=== PATIENT | female | born 1950 | race Caucasian/White ===

== ENCOUNTER 2022-09-03 18:24 | Emergency (ER) | payer MEDICARE, BC, SELFPAY ==
[2022-09-03 20:16] VITALS: BP 154/85; PULSE 69; RESP 18; TEMP 36.6; O2SAT 99; BMI 28.3
--- NOTE | 2022-09-03 20:41 | ED_ITS ---
HPI - General Adult General Chief complaint: Unspecified Complaint, Adult Stated complaint: Feels really out of it Time Seen by Provider: 09/03/22 20:30 History of Present Illness HPI narrative: This 72-year-old female comes in with her and states that she feels out of it. She does not have any clarification to this. She denies having any pain. There is no report of fever, dysuria, nausea, vomiting, or weakness. She states that she went to her exercise class today and that went well. Related Data Home Medications Medication Instructions Recorded Confirmed omeprazole 20 mg capsule,delayed 20 mg PO DAILY 09/03/22 09/03/22 release sertraline 50 mg tablet 50 mg PO DAILY 09/03/22 09/03/22 Allergies Allergy/AdvReac Type Severity Reaction Status Date / Time No Known Drug Allergies Allergy Verified 09/03/22 20:18 Review of Systems Status of ROS: Reports: 10 or more systems reviewed and unremarkable except as noted in History and below Narrative: Constitutional: No fevers, no weight gain or loss. Eyes: No discharge. No vision changes. HENT: No congestion, no sore throat, no ear pain. Cardiovascular: No chest pain, no palpitations. Respiratory: No shortness of breath, no wheezes, no cough. Gastrointestinal: No abdominal pain, no vomiting, no diarrhea. Genitourinary: No dysuria, no hematuria. Musculoskeletal: Normal range of motion. Skin: No rashes, no pruritis. Neurological: No dizziness, weakness, sensory change, speech change. Endo/Heme/Allergies: No bruising or bleeding. No polydipsia. Pysch: no suicidality, no anxiety, no insomnia. All other systems reviewed and are negative. Exam Narrative: Exam Narrative: Constitutional: Well-developed, well-nourished, no acute distress. HEENT: Normocephalic, atraumatic. Neck: Normal range of motion. Nontender. Supple. Heart: Regular. No murmurs. Normal rate. Intact distal pulses. Lungs: Clear to auscultation. No chest discomfort. No wheezes, rhonchi, or rales. Abdomen: Normal bowel sounds. Nontender. No rebound tenderness. Genitalia: Deferred. Back: No midline tenderness. Normal range of motion. Extremities: Normal range of motion. No injury. Skin: Intact. No rash. Warm. No erythema or pallor. Neurologic: No altered sensation. No weakness. Alert and oriented. Psychiatric: No suicidality. No anxiety or depression. No insomnia. Nursing notes and vitals signs are reviewed. Const: Vital Signs, click to edit/add: Vital Signs - 24 hr 09/03/22 20:16 Temperature 97.9 F Pulse Rate [Right Pulse Oximeter] 69 Respiratory Rate 18 Blood Pressure [Ri ght Upper Arm] 154/85 H Pulse Oximetry 99 Oxygen Delivery Me thod Room Air Course Vital Signs Vital signs: Initial Vital Signs Temperature 97.9 F 09/03/22 20:16 Temperature Source Temporal Artery Scan 09/03/22 20:16 Pulse Rate 69 09/03/22 20:16 Respiratory Rate 18 09/03/22 20:16 Blood Pressure 154/85 H 09/03/22 20:16 Blood Pressure Mean 108 09/03/22 20:16 Blood Pressure Position Sitting 09/03/22 20:16 Pulse Oximetry 99 09/03/22 20:16 Oxygen Delivery Method 09/03/22 20:16 Vital Signs Temperature 97.9 F 09/03/22 20:16 Pulse Rate 69 09/03/22 20:16 Respiratory Rate 18 09/03/22 20:16 Blood Pressure 154/85 H 09/03/22 20:16 Pulse Oximetry 99 09/03/22 20:16 Oxygen Delivery Method 09/03/22 20:16 Temperature 97.9 F 09/03/22 20:16 Pulse Rate 69 09/03/22 20:16 Respiratory Rate 18 09/03/22 20:16 Blood Pressure 154/85 H 09/03/22 20:16 Pulse Oximetry 99 09/03/22 20:16 Oxygen Delivery Method 09/03/22 20:16 Medical Decision Making MDM Narrative Medical decision making narrative: This patient comes in stating that she feels out of it. She really does not describe any specific symptoms to clarify what this means for her. She has normal vital signs. Lab results return also with normal metabolic panel and complete blood count. Her urinalysis also returns with normal findings. These results are communicated with the patient. She is okay to return home. I describe signs and symptoms that would indicate a need for return and re- evaluation. Lab Data Labs: Lab Results 10/17/22 10/17/22 10/17/22 Range/Units 20:40 20:53 20:53 WBC 5.59 (4.50-11.00) K/uL RBC 4.32 (4.00-5.20) m/uL Hgb 13.0 (12.0-16.0) gm/dL Hct 39.9 (33.0-51.0) % MCV 92 (80-100) fL MCH 30 (26-34) pg MCHC 33 (32-36) gm/dL RDW Coeff of Jane 9.1 L (11.5-15.5) % Plt Count 229 (140-440) K/uL Neut % (Auto) 54.7 (42.0-72.0) % Lymph % (Auto) 31.7 (20-44) % [place] % (Auto) 11.1 H (0.0-11.0) % Eos % (Auto) 1.4 (0.0-7.0) % Baso % (Auto) 0.7 (0.0-3.0) % Neut # (Auto) 3.10 (1.7-7.0) K/uL Lymph # (Auto) 1.80 (0.90-2.90) K/uL [place] # (Auto) 0.60 (0.00-0.90) K/UL Eos # (Auto) 0.10 (0.00-0.50) K/uL Baso # (Auto) 0.00 (0.00-0.30) K/uL Sodium 136 (135-149) mmol/L Potassium 3.8 (3.6-5.1) mmol/L Chloride 100 (96-114) mmol/L Carbon Dioxide 29 (20-32) mmol/L BUN 17 (7-30) mg/dL Creatinine 1.0 (0.5-1.5) mg/dL Estimated Creat Clear 45.20 Estimated GFR 61 ml/min Glucose 97 (60-115) mg/dL Calcium 9.6 (8.4-10.6) mg/dL C-Reactive Protein 0.6 (0.5-1.0) mg/dL Urine Color Yellow (Yellow) Urine Appearance Clear (Clear) Urine pH 7.0 (5.0-8.5) Ur Specific [place] 1.010 (1.000-1.030) Urine Protein Negative (Negative) Urine Glucose (UA) Negative (Negative) Urine Ketones Negative (Negative) Urine Blood Negative (Negative) Urine Nitrite Negative (Negative) Urine Bilirubin Negative (Negative) Urine Urobilinogen 0.2 (0.2-1.0) Ur Leukocyte Esterase Negative (Negative) Urine RBC 0-2 (0-2) Urine WBC 0-2 (0-5) Ur Squamous Epith Cells None (None-Few) Urine Bacteria None (None) Discharge Plan Discharge Clinical Impression: Malaise Patient Disposition: Home, Self-Care Condition: Stable Additional Instructions: Use [id number] medicines as needed and directed. Follow up with MD or return if worsening. Prescriptions: No Action sertraline 50 mg tablet 50 mg PO DAILY omeprazole 20 mg capsule,delayed release(DR/EC) 20 mg PO DAILY Follow Up/Referrals: Patria Keenan MD [Primary Care Provider] - Stand Alone Forms: [employer] Info Instructions
--- OUTSIDE RECORDS SUMMARY | 2022-09-03 20:55 | XMS_ITS | Clinical Summary ---
:1950 Author Organization [facility] [place] [address] Care Team Providers Name Role Phone Patria Keenan MD Primary Care Provider Allergies Active Allergy Reactions Severity Noted Date Comments Penicillins Hives High 04/30/2019 Medications Medication Sig Dispensed Refills Start Date End Date Status multivitamin (MVI) Take 1 Tablet by 0 Active tablet mouth once daily. calcium with vitamin Take 1 Tablet by 0 Active D3 (OS-VIKRAM 500 + D) mouth once tablet daily. LUTEIN ORAL Take 1 Tablet by 0 A ctive mouth once daily. omeprazole Take 1 Capsule 90 Capsule 3 05/17/2021 Ac tive (PRILOSEC) 20 mg (20 mg) by mouth Delayed-Release once daily capsuleIndications: before a meal. Heart burn sertraline (ZOLOFT) Take 1 Tablet 93 Tablet 3 05/24/2022 Active 100 mg (100 mg) by tabletIndications: mouth once Depression, daily. unspecified depression type omeprazole Take 1 Capsule 90 Capsule 3 05/24/2022 Ac tive (PRILOSEC) 10 mg (10 mg) by mouth capsuleIndications: once daily Heart burn before a meal. CPAPIndications: LIT CPAP machine for 1 Each 11 08/27/2022 Active (obstructive sleep home use at apnea) pressure 5-10 cmw, full face mask x1/3month with a full face cushion x1/mo CPAPIndications: LIT CPAP machine for 1 Each 2 06/22/2022 1 (obstructive sleep home use at apnea) pressure 5-20cmw, full face mask x1/3month with a full face cushion x1/mo Active Problems Problem Noted Date Seasonal affective disorder 08/22/2021 LIT 07/25/2004 AHI-24.5 05/20/2021 Heart burn 05/20/2021 Colon polyp 05/17/2021 Overview: 2019 colonoscopy - fu in 5 years Age-related osteoporosis without current pathological fracture 05/17/2021 Overview: DEXA 04/2020 [place] T score L spine -2. 7 2017 DEXA BABAR Roger 2 years Took some thing prior to that Depression 05/17/2021 Overview: Started in perimenopausal Encounters Date Type Specialty Care Team Description 08/27/2022 Office Visit Dimitri Iqbal MD Sleep Follow -up (CPAP) 08/27/2022 Travel 08/26/2022 Orders Only Scanner <No scans attac hed> 07/16/2022 Telemedicine Freedom Rebolledo MD Playdate App (No vitals taken. CC: rash ) 07/16/2022 Telephone Patria Keenan MD Appoint ment Request (Any Provider) 07/16/2022 Travel 07/16/2022 Nurse Triage Patria Keenan MD Derm Pr oblem from Last 3 Months Immunizations Name Administration Dates Next Due COVID-19 vaccine (Moderna 100mcg/0.5mL) 09/25/2021, 02/14/20 21, 01/16/2021 MD ANNAV Hepatitis A (Adult) 01/26/2016, 07/09/2012 Hepatitis A, Unspecified 01/26/2016, 07/09/2012 Hepatitis B (Adult) 02/21/2017, 07/09/2012 Hepatitis B, Unspecified 02/21/2017, 07/09/2012 Influenza, High-dose Inactivated 09/04/2019 Influenza, High-dose Quadrivalent 10/21/2020 Inactivated Influenza, Inactivated AIIV4 (Age 65+ 11/22/2021 Years) Preserv Free Pneumococcal Poly,23-Valent (Pneumovax) 04/18/2018 Pneumococcal conj 13-Valent (Prevnar 13) 04/30/2019 Td (Age >=7 Years) 09/10/2003 Tdap 01/01/2022, 11/08/2011, 09/10/2003 Typhoid (injectable) 07/09/2012 Yellow Fever 07/09/2012 Zoster (Shingrix-RZV, recombinant) 07/31/2018, 04/18/2018 Zoster (Zostavax-ZVL, live) 11/26/2013 Family History Medical History Relation Name Comments Cancer-colon Brother Depression Father Depression Mother Cancer-breast No Family History Cancer-ovarian No Family History Relation Name Status Comments Brother (Age 55) Father Mother (Age 88) Social History Tobacco Use Types Packs/Day Years Used Date Former Smoker Smokeless Tobacco: Never Used Tobacco Cessation: Counseling Given: Yes Comments: quit in 1979 Alcohol Use Standard Drinks/Week Comments Yes 1 (1 standard drink = 0.6 oz pure alcoho l) per day Alcohol Habits Answer Date Recorded How often do you have a drink containing alcohol? Not asked How many drinks containing alcohol do you have on a typical Not asked day when you are drinking? How often do you have six or more drinks on one occasion? No t asked Comment: per day 05/17/2021 Sex Assigned at Date Recorded Not on file COVID-19 Exposure Response Date Recorded In the last 10 days, have you been in contact with No / Unsu re 08/27/2022 1:17 PM CDT someone who was confirmed or suspected to have Coronavirus/COVID-19? Obstetrics History Last Filed Vital Signs Vital Sign Reading Time Taken Comments Blood Pressure 115/70 08/27/2022 1:27 PM CDT Pulse 71 08/27/2022 1:27 PM CDT Temperature - - Respiratory Rate - - Oxygen Saturation 96% 08/27/2022 1:27 PM CDT Inhaled Oxygen Concentration - - Weight 78.2 kg (172 lb 4.8 oz) 08/27/2022 1:27 PM CDT Height 163.3 cm (5' 4.29) 05/24/2022 9:39 AM CDT Body Mass Index 29.31 05/24/2022 9:39 AM CDT Plan of Treatment Upcoming Encounters Date Type Specialty Care Team Description 10/08/2022 Office Visit Yeimy Casey MBBS [address] [facility] [address] [facility] [address] [place] [address] (Wo rk) Health Maintenance Due Date Last Done Comments Hepatitis C screening for 02/01/1968 age 18-79 COVID-19 vaccine series (5 05/02/2022 03/07/2022, , - Booster for Moderna 02/13/2021, Additional series) history exists Influenza for age 65+ 07/19/2022 11/22/2021, 10/21/2020, 09/04/2019 BMI (ht and wt on same 05/24/2023 05/24/2022, 01/01/2022, day) for age 18+ 10/16/2021, Additional history exists Depression screening for 05/24/2023 05/24/2022, 05/17/2021 age 12+ Medicare Wellness for age 0705/24/2023 05/24/2022, 05/17/2021 65+ Mammogram for age 45-75 05/29/2023 05/29/2022, 05/16/2020 (Verified in Care Everywhere or Patient Record), 01/31/2016 Colonoscopy through age 75 06/01/2024 06/01/2019 (Verified in Care Everywhere or Patient Record) Lipids for age 45-75 05/24/2027 05/24/2022 Tetanus booster 01/01/2032 01/01/2022, 11/08/2011, 09/10/2003, Additional history exists Zoster (shingles) series Completed 07/31/2018, 04/18/2018, for age 50+ 11/26/2013 Pneumococcal series for Completed 04/30/2019, 04/18/2018 age 65+ DEXA/DXA scan for age 65+ Addressed 02/08/2020 (Verified i n Overridden with the Care Everywhere or intention of not Patient Record) completing the t opic Tdap Completed 01/01/2022, 11/08/2011, 09/10/2003 Procedures Procedure Name Priority Date/Time Associated Diagnosis Comme nts SCAN-DIAGNOSTIC 08/26/2022 12:00 AM Resul ts for this REPORT CDT procedure are i n the results section. from Last 3 Months Results SCAN-DIAGNOSTIC REPORT (08/26/2022 12:00 AM CDT) Narrative This result has an attachment that is no t available. Scanner OTHER from Last 3 Months Insurance Payer Benefit Plan / Subscriber ID Effective Dates Phone Addre ss Type Group MEDICARE - PB MEDICARE [place] [id number] 2018-Present ATT N: CLAIMS USE ONLY ONLY [address] [place] [address] [employer] [id number] 2016-[place] [address] [phone] [place] [address] Care Teams [employer] Relationship Specialty Start Date End Date Patria Keenan MD PCP - General Family Practice 08/22/21 [address] [place] [address]
[2022-09-03 21:07] LABS: Hematocrit 39.9 % (33.0-51.0); Mean Corpuscular HGB Conc 33 gm/dL (32-36); Mean Corpuscular Hemoglobin 30 pg (26-34); Mean Corpuscular Volume 92 fL (80-100); Neutrophils Percent Auto 54.7 % (42.0-72.0); Platelet Count* 229 K/uL (140-440); RDW Coefficient of Variation % 9.1 % (11.5-15.5); Red Blood Count 4.32 m/uL (4.00-5.20); White Blood Count* 5.59 K/uL (4.50-11.00)
[2022-09-03 21:08] LABS: Basophils Percent Auto 0.7 % (0.0-3.0); Eosinophils Percent Auto 1.4 % (0.0-7.0); Lymphocytes Percent Auto 31.7 % (20-44); Monocytes Percent Auto 11.1 % (0.0-11.0); Slide Review Reflex No
[2022-09-03 21:12] LABS: Chloride* 100 mmol/L (96-114); Sodium* 136 mmol/L (135-149)
[2022-09-03 21:13] LABS: Potassium* 3.8 mmol/L (3.6-5.1)
[2022-09-03 21:15] LABS: Estimated Glomerular Filt Rate 61 ml/min
[2022-09-03 21:16] LABS: Blood Urea Nitrogen* 17 mg/dL (7-30); Calcium* 9.6 mg/dL (8.4-10.6); Carbon Dioxide* 29 mmol/L (20-32); Glucose* 97 mg/dL (60-115)
[2022-09-03 21:19] LABS: C Reactive Protein* 0.6 mg/dL (0.5-1.0)
[2022-09-03 21:27] LABS: Appearance Urine Clear (Clear); Color Urine Yellow (Yellow)
[2022-09-03 21:28] LABS: Bilirubin Urine Negative (Negative); Blood Urine Negative (Negative); Glucose Urine Negative (Negative); Ketones Urine Negative (Negative); Leukocyte Esterase Urine Negative (Negative); Nitrite Urine Negative (Negative); Protein Urine Negative (Negative); RBC Urine 0-2 (0-2); Urobilinogen Urine 0.2 (0.2-1.0); WBC Urine 0-2 (0-5)
[2022-09-03 22:00] VITALS: BP 144/80; PULSE 71; RESP 18; TEMP 36.7; O2SAT 99
[2022-09-03 22:45] VITALS: BP 144/80; PULSE 71; RESP 18; TEMP 36.7
== END 2022-09-03 22:30 | disposition home or self-care (01) ==
PROVIDERS: Emergency Provider Emergency Medicine Emergency Medical Services; PCP Family Medicine
DX: R53.81 Other malaise (principal)
CPT/HCPCS: 36415; 80048; 81001; 85025; 86140; 99283; 99284

== ENCOUNTER 2023-11-13 20:08 | Outpatient (CLI) | payer MEDICARE, BC, SELFPAY | END 2023-11-13 20:09 | disposition home or self-care (01) | LOC: SLEEP 20:09 | PROVIDERS: PCP Family Medicine; Visit Provider Internal Medicine | DX: G47.33 Obstructive sleep apnea (adult) (pediatric) (principal) | CPT/HCPCS: 95811 ==

== ENCOUNTER 2024-09-25 07:10 | Outpatient (CLI) | payer MEDICARE, BC, SELFPAY ==
--- OUTSIDE RECORDS SUMMARY | 2024-09-25 07:15 | XMS_ITS | Clinical Summary ---
Author Organization [facility] Address [place], [place] [address] Care Team Providers Care Relay Technician Name Role Phone Lizbet Beasley Primary Care Provider [phone] Yeimy Casey [facility] Unavailable [phone] Allergies Active Allergy Reactions Criticality Noted Date Comments Penicillins Hives High 04/30/2019 Medications Medication Sig Dispensed Refills Start Date End Date Status LUTEIN ORAL Take 1 Tablet by mouth once daily. Active calcium with vitamin D3 (OS-VIKRAM 500 + D) tablet 780 mg daily and 450 IU daily 0 10/08/2022 Active multivitamin (MVI) tablet Vitamin D 1000 IU and calcium 450 MG daily 0 10/08/2022 Active famotidine (PEPCID) 20 mg tablet Take 1 Tablet (20 mg) by mouth two times daily. 0 08/29/2023 Active CPAPIndications:O SA (obstructive sleep apnea) CPAP machine for home use at pressure 12 cmw, full face mask x1/3month with a full face cushion x1/mo 1 Each 11 11/28/2023 Active sertraline (ZOLOFT) 100 mg tabletIndications :Depression, unspecified depression type Take 1 Tablet (100 mg) by mouth once daily. 93 Tablet 3 06/05/2024 Active polyethylene glycol-electrolyt e (GOLYTELY) 236-22.74-6.74 -5.86 gram suspensionIndicat ions:Polyp of colon, unspecified part of colon, unspecified type Drink 2 liters (half the bottle) the day before colonoscopy and 2 liters (remaining prep) 6 hours prior to colonoscopy appointment. 4000 mL 07/10/2024 Active mirtazapine (REMERON) 7.5 mg tabletIndications :Depression, unspecified depression type Take 1 Tablet (7.5 mg) by mouth at bedtime. 90 Tablet 3 08/31/2024 Active mirtazapine (REMERON) 7.5 mg tabletIndications :Depression, unspecified depression type Take 1 Tablet (7.5 mg) by mouth at bedtime. 30 Tablet 08/18/2024 Discontinue d(Reorder (E-cancel not sent)) Active Problems Problem Noted Date Diagnosed Date VERO (generalized anxiety disorder) 09/17/2024 Seasonal affective disorder 08/22/2021 LIT 07/25/2004 AHI-24.5 05/20/2021 Heart burn 05/20/2021 Colon polyp 05/17/2021 Overview (05/17/2021): 2019 colonoscopy - fu in 5 years Age-related osteoporosis wit hout current pathological fracture 05/17/2021 Overview (05/24/2022): DEXA 04/2020 [place] T score L spine -2.7 2018 DEXA BABAR Roger 2 years Took some thing prior to that Depression 05/17/2021 Overview (05/17/2021): Started in perimenopausal Encounters Date Type Department Care Team Description 09/24/2024 Travel 09/16/2024 10:15 AM CDT Tele[facility]icine [facility] [address] [place] [address] Gia Chavira PsyD, LP Telehealth; Depression; Anxiety; Mental Health Intake 09/16/2024 Travel 08/31/2024 10:35 AM CDT Office Visit [facility] [[email or web address] [address] [place] [address] Lizbet Beasley, DO Preoperative Exam (09/25/24 - Colonoscopy- Dr. Manning - [facility]) 08/31/2024 Travel 08/18/2024 10:35 AM CDT Office Visit [address] [place] [address] Lizbet Beasley, Multiple Problems (General malaise, hand tremors/shaking/ner vousness, decreased appetite, weight loss, feels hot/cold on/off) 08/18/2024 Travel 07/15/2024 7:00 AM CDT Orders Only [address] [address] [place], [place] [facility] 07/14/2024 10:40 AM CDT Ancillary Procedure [facility] [[email or web address]] [facility] [place] [address] 07/14/2024 Travel 07/13/2024 Telephone [facility] [[email or web address]] [facility] [place] [address] Suzette Salmeron [facility] Phone number 07/10/2024 10:10 AM CDT Office Visit [address] [place] [address] Lizbet Beasley DO Medicare ANNUAL (subsequent) Visit (74 year old female); Dizziness (On/off over the last few weeks - had work up 2 weeks ago) 07/10/[address] [place] [address] Bernardino Manning MD Screening 07/10/2024 Travel 07/02/2024 10:00 AM CDT Office Visit [address] [address] Suzette Salmeron [facility] Visit 07/02/2024 Travel 06/30/2024 Orders Only [address] [address] Jessie Zuleta PA 1 scan: (1-Ord) NFLD-EKG-06/29/24 06/29/2024 7:45 AM CDT Office Visit [address] [address] Jessie Zuleta PA Dizziness (Has happened on and off but lately it has happen more frequently, interfering with everyday life and loss of appetite. ) 06/29/2024 Travel from Last 3 Months Immunizations Name Administration Dates Next Due AMB INFLUENZA IIV3 (AGE 65+ YRS) PF (Flu Clinic Only) 08/07/2024 COVID-19 vaccine (Moderna 10 0mcg/0.5mL) PF, MDV 09/25/2021,02/13/2021,01/16/2021 Hepatitis A (Adult) 01/26/2016,07/09/2012 Hepatitis A, Unspecified 01/26/2016,07/09/2012 Hepatitis B (Adult) 02/21/2017,07/09/2012 Hepatitis B, Unspecified 02/21/2017,07/09/2012 Influenza, High-dose Inactivated 08/07/2024,08/18 Influenza, High-dose Quadriv alent Inactivated 10/21/2020 Influenza, Inactivated AIIV4 (Age 65+ Years) Preserv Free 10/07/2023,08/30/2022,11/22/2021 Pneumococcal Poly,23-Valent (Pneumovax) 04/18/20 18 Pneumococcal conj 13-Valent (Prevnar 13) 019 RSV, Bivalent Vaccine Recons tituted (Abrysvo 120MCG/0.5mL) 11/01/2023 Td (Age >=7 Years) 09/10/2003 Tdap 01/01/2022,11/08/2011,09/10/2003 Typhoid (injectable) 07/09/2012 Yellow Fever 07/09/2012 Zoster (Shingrix-RZV, recombinant) 07/31/2018, Zoster (Zostavax-ZVL, live) 11/26/2013 Family History Medical History Relation Name Comments Cancer-colon Brother Depression Father Depression Mother Cancer-breast No Family History Cancer-ovarian No Family History Relation Name Status Comments Brother (Age 55) Father Mother (Age 88) Social History Tobacco Use Types Packs/Day Years Used Date Smoking Tobacco: Former Smokeless Tobacco: Never Tobacco Cessation:Counseling Given: Yes Comments:quit in 1979 Alcohol Use Standard Drinks/Week Comments Yes 1 (1 standard drink = 0.6 oz pur e alcohol) per day PHQ-2 Answer Date Recorded PHQ-2 TOTAL SCORE 2 09/16/2024 Social Connections Answer Date Recorded Frequency of Communication with Friends and Fami ly 0 08/22/2023 Financial Resource Strain Answer Date R ecorded Difficulty of Paying Living Expenses 3 08/22/2023 Difficulty of Paying Living Expenses Not on file 08/22/2023 Food Insecurity Answer Date Recorded Worried About Running Out of Food in the Last Ye ar 1 08/22/2023 Transportation Needs Answer Date Record ed Lack of Transportation (Medical) 1 08/22/2023 Housing Stability Answer Date Recorded Unable to Pay for Housing in the Last Year 1 08/22/2023 Sex and Gender Information Value Date Recorded Sex Assigned at Not on file Gender Identity Not on file Sexual Orientation Not on file Obstetrics History Last Filed Vital Signs Vital Sign Reading Time Taken Comments Blood Pressure 114/72 08/31/2024 10:42 AM CDT Pulse 79 08/31/2024 10:42 AM CDT Temperature 36.4 ??C (97.5 ??F) 02/04/2024 9:13 AM CD T Respiratory Rate 16 02/04/2024 9:13 AM CDT Oxygen Saturation 99% 08/31/2024 10: 42 AM CDT Inhaled Oxygen Concentration - - Weight 70.6 kg (155 lb 11.2 oz) 024 10:42 AM CDT Height 162 cm (5' 3.78) 07/10/2024 10: 18 AM CDT Body Mass Index 26.91 07/10/2024 10:18 AM CDT Plan of Treatment Upcoming Encounters Date Type Department Care Team (Late st Contact Info) Description 09/25/2024 7:15 AM GRAPHOTYPE OPERATOR Office Visit [facility] [[email or web address] at [facility] [address] [place] [address] Bernardino Manning MD [facility] [place] [address] 10/29/2024 9:00 AM GRAPHOTYPE OPERATOR Telemedicine [address] [address] Gia Chavira PsyD, LP [address] [place] [address] 11/30/2024 10:30 AM GRAPHOTYPE OPERATOR [facility] Visit [facility] [address] [facility] [place] [address] Gia Chavira PsyD, LP [address] [place] [address] 12/14/2024 10:30 AM GRAPHOTYPE OPERATOR Office Visit [facility] [address] [place] [address] Gia Chavira PsyD, LP [address] [place] [address] 12/28/2024 10:30 AM GRAPHOTYPE OPERATOR Office [facility] [address] [place] [address] Gia Chavira PsyD, LP [address] [place] [address] 01/25/2025 1:45 PM CDT Office Visit [facility] [address] [facility] [address] [address] [place], [place] [id number] Yeimy Casey MBBS [address] [place], [place] [id number] Health Maintenance Due Date Last Done Comments Colonoscopy through age 75 06/01/202406/01 (Verified in Care Everywhere or Patient Record) BMI (ht and wt on same day) for age 18+ 07/10/2025 07/10/2024, 01/23/2024, 11/28/2023, Additional history exists Medicare Wellness for age 65+ 07/11/2025, 06/19/2023, 05/24/2022, Additional history exists Mammogram for age 45-75 07/14/2025 07/14/20 24, 05/31/2023, 05/29/2022, Additional history exists Depression screening for age 12+ 09/16/2025 09/16/2024, 07/13/2024, 07/10/2024, Additional history exists Lipids for age 45-75 07/15/2029 07/15/2024, 05/24/20 22 Tetanus booster 01/01/2032 01/01/2022, 10/19, 09/10/2003, Additional history exists Zoster (shingles) series for age 50+ Completed 07/31/2018, 04/18/2018, 11/26/2013 Pneumococcal series for age 65+ Completed 9, 04/18/2018 Tdap Completed 01/01/2022, 10/19, 09/10/2003 DEXA/DXA scan for age 65+ Completed 2021, 02/08/2020 (Verified in Care Everywhere or Patient Record) Hepatitis C screening for ag e 18-79 Completed 07/15/2024 COVID-19 vaccine series Completed 08/07/20, 01/17/2024, 03/21/2023, Additional history exists Influenza for age 65+ Completed 08/07/2024 , 08/07/2024, 10/07/2023, Additional history exists Procedures Procedure Name Priority Date/Time Associated Diagnosis Comments ANTI HCV Routine 07/15/2024 7:05 AM CDT Need for hepatitis C screening test LIPID PANEL W REFLEX MEASURED LDL Routine 07/15/2024 7:05 AM CDT Screening cholesterol level XR MAMMO ROXY BILAT SCREEN Routine 07/14/2024 10:43 AM CDT Breast cancer screening by mammogram IA READING EKG - NO CHARGE, COMP ONLY Routine 06/30/2024 1:30 PM CDT Lightheadedness EKG 12 LEAD Routine 06/30/2024 1:30 PM CDT Lightheadedness CBC WITH AUTO DIFFERENTIAL Routine 06/29/2024 8:39 AM CDT Lightheadedness TSH WITH REFLEX Routine 06/29/2024 8:39 AM CDT Fatigue, unspecified type VITAMIN D 25 (DEFICIENCY) Routine 06/29/2024 8:39 AM CDT Vitamin D deficiency BASIC METABOLIC PANEL STAT 06/29/2024 8:39 AM CDT Lightheadedness CBC WITH AUTO DIFFERENTIAL Routine 06/29/2024 8:39 AM CDT Lightheadedness XR DXA BONE DENSITY 2 SITES AXIAL Routine 10/08/2022 1:01 PM GRAPHOTYPE OPERATOR Age-related osteoporosis without current pathological fracture from Last 3 Months or Most Recently Relevant to Health Maintenance Results * (ABNORMAL) LIPID PANEL W REFLEX MEASURED LDL (07/15/2024 7:05 AM CDT) CHOLESTEROL,TOTAL 212(H) 100 - 199 mg/dL 07/15/2024 1:27 PM CDT [facility] Comment: Cholesterol, Total Reference Ranges Desirable <200 mg/dL Borderline 200-239 mg/dL High >=240 mg/dL TRIGLYCERIDES 107 <150 mg/dL 07/15/2024 1:27 PM CDT [facility] HDL CHOLESTEROL 104 >40 mg/dL 1:27 PM CDT [facility] NON-HDL CHOLESTEROL 108 <145 mg/dl 07/15/2024 1:27 PM CDT [facility] CHOL/HDL RATIO 2.04 <4.50 07/15/2024 1:27 PM CDT [facility] LDL CHOLESTEROL 87 <=130 mg/dL 07/15/2024 1:27 PM CDT [facility] VLDL CHOLESTEROL 21 <=30 mg/dL 07/15/2024 1:27 PM CDT [facility] PROVIDER ORDERED STATUS RANDOM 07/15/2024 1:27 PM CDT [facility] Blood BLOOD SPECIMEN / Unknown Venipuncture / Unknown 07/15/2024 7:05 AM CDT 07/15/2024 7:04 AM CDT Lizbet Beasley DO CHEMISTRY Performing Organization Address [facility] Co de Phone Number [facility] [address] [place] [address], [place] * ANTI HCV (07/15/2024 7:05 AM CDT) HEPATITIS C ANTIBODY Non-Reacti ve Non-React brannon 07/15/2024 1:37 PM CDT [facility] Comment:Please note, per www .CDC.gov: If a patient is known to be at high risk of HCV infection, or is symptomatic, and the physician's suspicion of HCV infection is high, HCV RNA testing is often employed and is of diagnostic value, even after an initial negative anti-HCV test result. Blood BLOOD SPECIMEN / Unknown Venipuncture / Unknown 07/15/2024 7:05 AM CDT 07/15/2024 7:04 AM CDT Lizbet Beasley DO SEND OUTS Performing Organization Address [facility] Co de Phone Number [facility] [address] [place] [address], [place] * XR MAMMO ROXY BILAT SCREEN [[id number]] (07/14/2024 10:43 AM CDT) Anatomical Region Laterality Modality BREASTS, Breast Left, Breast Right Bilateral Mammography Impressions 07/15/2024 3:27 PM CDT ??There is no radiographic evidence for malignancy. ??Recommend annual mammograms. MAMMOGRAM ASSESSMENT: ??ACR 1 Negative PATIENTS: You will also receive a letter with your examination results in an easy to read format. ??If you have questions about your results, please contact your referring provider. Narrative 07/15/2024 3:27 PM CDT For Patients: As a result of the Century Cures Act, medical imaging exams and procedure reports are released immediately into your electronic medical record. You may view this report before your referring provider. If you have questions, please contact your health care provider. XR MAMMO ROXY BILAT SCREEN [[id number]] CLINICAL HISTORY: ??This is an asymptomatic 74 y.o. patient. INDICATION FOR EXAM: Mammogram Screening. TECHNIQUE: CC & MLO views were obtained. ??This study was evaluated with the assistance of Computer-Aided Detection. Breast Tomosynthesis was used in interpretation. COMPARISON FILM: Yes 05/31/23 [facility] 05/29/22 [facility] FINDINGS: ??The breasts are heterogeneously dense, which may obscure small masses. There are no dominant masses, suspicious micro calcifications or areas of architectural distortion. Lizbet Minda Beasley DO MAMMO * EKG 12 LEAD (06/30/2024 1:30 PM CDT) Jessie GRIFFITHS EKG ORD * IA READING EKG - NO CHARGE, COMP ONLY (06/30/2024 1:30 PM CDT) Jessie GRIFFITHS PB - PROVIDER READINGS * CBC WITH AUTO DIFFERENTIAL (06/29/2024 8:39 AM CDT) WHITE BLOOD COUNT 5.1 4.5 - 11.0 thou/cu mm 06/29/2024 8:47 AM CDT [facility] RED BLOOD COUNT 4.29 4.00 - 5.20 mil/cu mm 06/29/2024 8:47 AM CDT [facility] HEMOGLOBIN 13.2 12.0 - 16.0 g/dL 06/29/2024 8:47 AM CDT [facility] HEMATOCRIT 39.0 33.0 - 51.0 % 06/29/2024 8:47 AM CDT [facility] MCV 91 80 - 100 fL 06/29/2024 8:47 AM CDT [facility] MCH 30.8 26.0 - 34.0 pg 06/29/2024 8:47 AM CDT [facility] MCHC 33.8 32.0 - 36.0 g/dL 06/29/2024 8:47 AM CDT [facility] RDW 13.9 11.5 - 15.5 % 06/29/2024 8:47 AM CDT [facility] PLATELET COUNT 240 140 - 440 thou/cu mm 06/29/2024 8:47 AM CDT [facility] MPV 8.7 6.5 - 11.0 fL 06/29/2024 8:47 AM CDT [facility] % NEUT 69.7 % 06/29/2024 8:47 AM CDT [facility] % LYMPH 18.9 % 06/29/2024 8:47 AM CDT [facility] % MONO 8.8 % 06/29/2024 8:47 AM CDT [facility] % EOS 2.0 % 06/29/2024 8:47 AM CDT [facility] % BASO 0.6 % 06/29/2024 8:47 AM CDT [facility] ABSOLUTE NEUTROPHILS 3.6 1.7 - 7.0 thou/cu mm 06/29/2024 8:47 AM CDT [facility] ABSOLUTE LYMPHOCYTES 1.0 0.9 - 2.9 thou/cu mm 06/29/2024 8:47 AM CDT [facility] ABSOLUTE MONOCYTES 0.5 <0.9 thou/cu mm 06/29/2024 8:47 AM CDT [facility] ABSOLUTE EOSINOPHILS 0.1 <0.5 thou/cu mm 06/29/2024 8:47 AM CDT [facility] ABSOLUTE BASOPHILS 0.0 <0.3 thou/cu mm 06/29/2024 8:47 AM CDT [facility] Blood BLOOD SPECIMEN / Unknown Venipuncture / Unknown 06/29/2024 8:39 AM CDT 06/29/2024 8:40 AM CDT Jessie GRIFFITHS HEMATOLOGY [facility] [address] [place] [address], * TSH WITH REFLEX (06/29/2024 8:39 AM CDT) TSH 1.21 0.27 - 4.20 uIU/mL 06/29/2024 6:48 PM CDT [facility] Blood BLOOD SPECIMEN / Unknown Venipuncture / Unknown 06/29/2024 8:39 AM CDT 06/29/2024 8:40 AM CDT Narrative [facility] - 06/29/2024 6:48 PM CDT In Adults, TSH values between 5.00 and 10.00 uIU/ml do not necessarily indicate the presence of Hypothyroidism. Correlation with clinical findings such as presence of goiter and/or Thyroperoxidase (TPO) Antibody may be helpful. For more information please refer to KAILYN 2004; 291: 228-238. Jessie GRIFFITHS CHEMISTRY Performing Organization Address [facility] Co de Phone Number [facility] [address] * VITAMIN D 25 (DEFICIENCY) (06/29/2024 8:39 AM CDT) Pathologist [facility] VITAMIN D TOTAL 56.2 20.0 - 80.0 ng/mL 06/29/2024 6:48 PM CDT [facility] Blood BLOOD SPECIMEN / Unknown Venipuncture / Unknown 06/29/2024 8:39 AM CDT 06/29/2024 8:40 AM CDT Narrative [facility] - 06/29/2024 6:48 PM CDT ? Vitamin D Status Deficiency: ? <20 ng/mL Insufficiency: ?20-29 ng/mL Sufficiency: ?30-80 ng/mL Possible Toxicity: ??>80 ng/mL Based on [place] of Medicine recommendations Biotin supplements may cause clinically significant interference for this test assay. ??If interference is suspected, it is strongly recommended that biotin is discontinued for at least one week prior to retesting. Jessie GRIFFITHS SEND OUTS Performing Organization Address [facility] Co de Phone Number [facility] [address] [place] [id number] * (ABNORMAL) BASIC METABOLIC PANEL (06/29/2024 8:39 AM CDT) SODIUM 134(L) 136 - 145 mmol/L 06/29/2024 12:52 PM [facility] POTASSIUM 4.7 3.5 - 5.1 mmol/L 06/29/2024 12:52 PM [facility] CHLORIDE 97(L) 98 - 107 mmol/L 06/29/2024 12:52 PM [facility] CO2,TOTAL 26 22 - 29 mmol/L 06/29/2024 12:52 PM [facility] ANION GAP 11 5 - 18 06/29/2024 12:52 PM [facility] GLUCOSE 103(H) 70 - 99 mg/dL 06/29/2024 12:52 PM [facility] CALCIUM 9.8 8.8 - 10.2 mg/dL 06/29/2024 12:52 PM [facility] BUN 10 8 - 23 mg/dL 06/29/2024 12:52 PM [facility] CREATININE 0.87 0.50 - 0.90 mg/dL 06/29/2024 12:52 PM [facility] BUN/CREAT RATIO 11 10 - 20 12:52 PM [facility] eGFR 71(L) >90 mL/min/1.7 3m2 06/29/2024 12:52 PM [facility] Comment:As of 2022, eG FR is calculated by the CKD-EPI creatinine equation without race adjustment. ??eGFR can be influenced by muscle mass, exercise, and diet. ??The reported eGFR is an estimation only and is only applicable if the renal function is stable. Blood BLOOD SPECIMEN / Unknown Venipuncture / Unknown 06/29/2024 8:39 AM CDT 06/29/2024 8:40 AM CDT Jessie GRIFFITHS CHEMISTRY [facility] [address] [place] [address] * XR DXA BONE DENSITY 2 SITES AXIAL (10/08/2022 1:01 PM GRAPHOTYPE OPERATOR) Anatomical Region Laterality Modality Spine, HIPS, HIPL, HIPR Computed Radiography Impressions 10/08/2022 1:38 PM GRAPHOTYPE OPERATOR Osteoporosis. RECOMMENDATIONS: The National Osteoporosis Foundation recommends pharmacologic treatment for patients with T-scores of -2.5 or less, patients with prior history of fragility fractures, or patients with 10-year probability of greater than 3% at hips or greater than 20% of suffering major osteoporotic fractures. Recommend continued optimization of calcium and vitamin D intake through dietary means and/or supplementation and regular exercise. Consider pharmacologic therapy for osteoporosis. Follow-up bone density reading in 2 years if therapy initiated to assess therapeutic efficacy. Reji Haji MD 10/08/2022 1:38 PM Narrative 10/08/2022 1:38 PM GRAPHOTYPE OPERATOR For Patients: Results are automatically released to your [employer]) account once available, in compliance with federal regulations. This means that you may see your results before your provider has had a chance to review them. Please allow 2-3 business days for your provider to comment on the results. XR DXA Bone Mineral Density (BMD) EXAM LOCATION: [facility] [address] [place] [id number] PATIENT NAME: Yudy Selby DATE OF : 1950 EXAM DATE: 10/08/2022 REQUESTING PROVIDER: Yeimy Casey MBBS GENDER AT : female HEIGHT: 5' 4.13 (10/08/2022) WEIGHT: ??169 lb 1.6 oz (10/08/2022) MENOPAUSAL STATUS: Postmenopausal RACE/ETHNICITY: White RISK FACTORS: Smoking (prior) and White Race CURRENT MEDICATION FOR BONE LOSS: NONE INDICATION: Follow-up of existing osteoporosis COMPARISON DATE(S): None DXA scans are compared to prior studies for a patient only when the two (or more) studies were performed on the same scanner. It is not possible to compare data generated on one scanner to data from another because there are not standards in DXA equipment. This applies even if the two scanners are made by the same asp net programmer. PROCEDURE: Dual-energy x-ray absorptiometry performed with routine technique. Reporting is completed in the form of a T-score. The T-score represents the standard deviation from peak bone mass based on young healthy adult. A Z-score is used for diagnosis in premenopausal women, and for men under the age of 50. FINDINGS: RESULT LUMBAR SPINE L2 - L4 ??BMD: 0.784 g/cm2 T-Score: - 3.5 Z-Score: - 2.2 RESULTS FEMUR Left femoral neck BMD: 0.695 g/cm2 T-Score: - 2.5 Z-Score: - 1.0 Right femoral neck BMD: 0.686 g/cm2 T-Score: - 2.5 Z-Score: - 1.1 Left hip BMD: 0.717 g/cm2 T-Score: - 2.3 Z-Score: - 1.1 Right hip BMD: 0.726 g/cm2 T-Score: - 2.2 Z-Score: - 1.0 WHO criteria: Normal: T-score at or above -1 SD Osteopenia: T-score between -1.1 and -2.4 SD Osteoporosis: T-score at or below -2.5 SD Yeimy EVANS DEXA from Last 3 Months or Most Recently Relevant to Health Maintenance Advance Directives Documents on File Type Date Recorded Patient Dress Shoe Inspector Expl anation Healthcare Directive 06/18/2023 023 Care Teams Relay Technician Relationship Specialty Start Date End Date Lizbet Beasley DO [address] [place] [address] PCP - General Family Practice 06/19/23 Yeimy Casey MBBS [address] [facility] [address] [place] [address] Endocrinology 10/07/23
--- NOTE | 2024-09-25 08:30 | W.ANESCHARGE ---
Anesthesia Charges Start Date/Time Anesthesia Start Date: 09/25/24 Anesthesia Start Time: 07:58 Stop Date/Time Anesthesia Stop Date: 09/25/24 Anesthesia Stop Time: 08:27 Summary Extremes of Age - Over 70 or under 1: SUPPORT MERCHANDISER
--- NOTE | 2024-09-25 08:43 | W.ANESCHARGE ---
Anesthesia Charges Start Date/Time Anesthesia Start Date: 09/25/24 Anesthesia Start Time: 07:58 Stop Date/Time Anesthesia Stop Date: 09/25/24 Anesthesia Stop Time: 08:27 Summary Extremes of Age - Over 70 or under 1: MDA
== END 2024-09-25 07:11 | disposition home or self-care (01) ==
PROVIDERS: PCP Family Medicine; Visit Provider Internal Medicine Gastroenterology
DX: Z12.11 Encounter for screening for malignant neoplasm of colon (principal); Z86.0101 Personal history of adenomatous and serrated colon polyps; K57.30 Diverticulosis of large intestine without perforation or abscess without bleeding
CPT/HCPCS: 00811; 00812; 45378; 99100; J2704